=== PATIENT | female | born 1950 | race Caucasian/White ===

== ENCOUNTER 2016-05-23 09:46 | Day surgery (SDC) | payer MEDICARE, OTHER ==
[2016-05-20 08:56] VITALS: BMI 31.6
[~2016-05-23 09:46] MED LIST: FAMOTIDINE 20 MG/2 ML VIAL IV PRN; LACTATED RINGERS 1,000 ML IV SCH; LIDOCAINE 1% 20 ML VIAL (10MG/ML) FOR IV START INTRADERMA PRN; MIDAZOLAM 2 MG/2 ML VIAL IV PRN; Pre Op ABX Message 1 EACH MISC MISCELLANE ONE
[2016-05-23] MEDS ORDERED: LACTATED RINGERS 1,000 ML IV ONE ×2 (10:40→11:24)
[2016-05-23] MEDS ORDERED: MIDAZOLAM 2 MG/2 ML VIAL ONE (10:48)
[2016-05-23] MEDS ORDERED: SUCCINYLCHOLINE CHLORIDE 100 MG/5 ML SYR IV ONE (10:48)
[2016-05-23] MEDS ORDERED: PHENYLEPHRINE-0.9% NACL SYG 1 MG/10 ML SYRINGE ONE (10:48)
[2016-05-23] MEDS ORDERED: LACTATED RINGERS 1,000 ML BAG IV ONE (10:48)
[2016-05-23] MEDS ORDERED: LIDOCAINE 1% INJ 10MG/ML (20 ML MDV) ONE (10:48)
[2016-05-23] MEDS ORDERED: PROPOFOL 10 MG/ML 20 ML VIAL IV ONE (10:48)
[2016-05-23] MEDS ORDERED: fentaNYL (PF) 50 MCG/ML 2 ML AMP ONE (10:48)
[2016-05-23] MEDS ORDERED: BUPIVACAIN-EPI 0.5%-1:200,000 30 ML VIAL SQ ONE (11:06)
--- NOTE | 2016-05-23 11:50 | P.OP ---
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 Margins were close. Therefore wide excision was recommended and informed consent was obtained. Operative Findings: Previous biopsy cavity was found in the right upper quadrant and excised. Description of Procedure: With the patient supine the right breast and chest wall were prepped with Betadine and draped local anesthetic Marcaine 0.5% plain was infiltrated into the skin and subcutaneous tissues at the previous scar. Upper and lower flaps were created. I'll see cavity was palpable was grasped with an Allis clamp and excised completely with about a centimeter margin circumferentially muscle and including the fascia. The wound was irrigated hemostasis was good and the field was dry. Closure was achieved with interrupted 4-0 Vicryl for the subcutaneous tissues and 4-0 Monocryl subcuticular suture and Steri-Strips for the skin. Dressings were applied. All counts were correct.
[2016-05-23 12:01] VITALS: TEMP 97.6
[2016-05-23] MEDS: HYDROmorphone 1 MG/ML 1 ML SYRINGE IVP PRN ×4 (12:02→12:35)
[2016-05-23 12:28] VITALS: RESP 16
[2016-05-23] MEDS ORDERED: HYDROcodone/APAP 5-325MG 1 EACH TAB PO ONE (13:05)
[2016-05-23 13:48] VITALS: BP 98/65; PULSE 75
== END 2016-05-23 14:15 | disposition home or self-care (01) ==
LOC: OR 09:46
PROVIDERS: ATTEND Surgery
DX: D05.11 Intraductal carcinoma in situ of right breast (principal); N60.11 Diffuse cystic mastopathy of right breast; I10 Essential (primary) hypertension; E78.5 Hyperlipidemia, unspecified; M19.90 Unspecified osteoarthritis, unspecified site; F41.9 Anxiety disorder, unspecified; K21.9 Gastro-esophageal reflux disease without esophagitis; Z79.82 Long term (current) use of aspirin; Z79.899 Other long term (current) drug therapy; Z88.0 Allergy status to penicillin
CPT/HCPCS: 19301; 88342; 88307; J2250; J2001; J3010; J1170; J2370; J0330; J2704

== ENCOUNTER 2016-07-25 07:43 | Day surgery (SDC) | payer MEDICARE, OTHER ==
[2016-07-22 11:43] VITALS: BMI 32.3
[~2016-07-25 07:43] MED LIST changes: -FAMOTIDINE 20 MG/2 ML VIAL IV PRN; -LIDOCAINE 1% 20 ML VIAL (10MG/ML) FOR IV START INTRADERMA PRN; -MIDAZOLAM 2 MG/2 ML VIAL IV PRN; -Pre Op ABX Message 1 EACH MISC MISCELLANE ONE
[2016-07-25 09:01] VITALS: TEMP 97.5
[2016-07-25] MEDS ORDERED: LIDOCAINE 1% 20 ML VIAL (10MG/ML) FOR IV START INTRADERMA ONE (09:07)
[2016-07-25] MEDS ORDERED: PROPOFOL 10 MG/ML 20 ML VIAL IV ONE (09:52)
[2016-07-25 10:19] VITALS: RESP 18
--- NOTE | 2016-07-25 10:23 | P.PCN ---
Date of Procedure: 07/25/16 Procedure(s) Performed: Procedure: Esophagogastroduodenoscopy and biopsy. Preoperative diagnosis: Chronic reflux symptoms requiring ongoing therapy. Postoperative diagnosis: 1. Small sliding hiatal hernia with no definite esophagitis or complicated reflux disease. 2. Mild antral gastritis. 3. Multiple biopsies obtained from the duodenum, antrum and esophagus. Preparation sedation: Was provided by anesthesia. Brief clinical history: The patient is a 66-year-old female was had issues with reflux for more than 10 years for which she has been maintained on PPI. Apparently, she would have recurrence of her symptoms within 2-3 days when she stops taking her medications. She has no alarm symptoms such as dysphagia, bleeding or weight loss. No history of anemia. Procedure: With the patient on her left lateral decubitus position and after informed consent and adequate sedation, I passed the Olympus-GIF 160 video upper endoscope through the cricopharyngeus down the esophagus. GE junction was around 38 cm from the incisors and there was a small sliding hiatal hernia. The esophagus did not show any obvious erosions, ulcers, strictures or Nassar 's esophagus. The endoscope was then passed into the stomach which was insufflated with air and inspected in detail including the retroflex view in the cardia. There was minimal mottling and erythema in the antrum but no ulcers or erosions. Pyloric channel, duodenal bulb, post bulbar area and descending duodenum appeared within normal limits. Because of her history, I obtained multiple biopsies from the duodenum in addition to biopsies from the antrum and esophagus then the endoscope was withdrawn. The patient tolerated the procedure well. Plan: The patient was reassured. Will await biopsy results. In the meantime, she will continue her regular follow-up with you and I suggest that she continue to be maintained on the longest intervals and minimal dozing of acid suppressive treatment necessary to keep her symptoms under control. I will be happy to see in the office of her symptoms change.
[2016-07-25 10:34] VITALS: BP 110/65; PULSE 78
== END 2016-07-25 11:20 | disposition home or self-care (01) ==
LOC: ORWHC2ENDO 07:43
DX: K21.9 Gastro-esophageal reflux disease without esophagitis (principal); K44.9 Diaphragmatic hernia without obstruction or gangrene; K31.9 Disease of stomach and duodenum, unspecified; K29.70 Gastritis, unspecified, without bleeding; Z79.811 Long term (current) use of aromatase inhibitors; Z79.1 Long term (current) use of non-steroidal anti-inflammatories (NSAID); Z79.899 Other long term (current) drug therapy; Z88.0 Allergy status to penicillin
CPT/HCPCS: 88305; 88342; 43239; J2704

== ENCOUNTER → 2016-07-29 | Outpatient (CLI) | payer MEDICARE, OTHER ==
--- NOTE | 2016-07-29 09:12 | US ---
EXAMINATION TYPE: US abdomen complete DATE OF EXAM: 07/29/2016 7:29 AM COMPARISON: Previous study dated 01/28/2011. CLINICAL HISTORY: R22.1 Pulsatile Mass. Patient states pulsatile mass at abdominal aorta level; BR CA . EXAM MEASUREMENTS: Liver Length: 13.9 cm Gallbladder Wall: 0.2 cm CBD: 0.3 cm Spleen: 9.8 cm Right Kidney: 9.8 x 6.5 x 4.4 cm Left Kidney: 9.5 x 5.0 x 5.7 cm TECHNOLOGIST IMPRESSION: Pancreas: hyperechoic Liver: wnl Gallbladder: wnl Evidence for sonographic Sánchez's sign: No CBD: wnl Spleen: wnl Right Kidney: wnl Left Kidney: wnl Upper IVC: wnl Abd Aorta: wnl The aorta is normal in caliber. The gallbladder wall measures 1.8 mm. IMPRESSION: NORMAL ABDOMINAL ULTRASOUND.
== END | disposition home or self-care (01) ==
LOC: RADUSWWP 06:47
PROVIDERS: ATTEND Family Medicine
DX: R19.00 Intra-abdominal and pelvic swelling, mass and lump, unspecified site (principal)
CPT/HCPCS: 76700

== ENCOUNTER → 2016-08-02 | Outpatient (CLI) | payer MEDICARE, OTHER | END | disposition home or self-care (01) | LOC: LABWHC1 08:16 | PROVIDERS: ATTEND Family Medicine | DX: Z01.818 Encounter for other preprocedural examination (principal) | CPT/HCPCS: 36415; 93005 ==

== ENCOUNTER → 2017-02-28 | Outpatient (CLI) | payer MEDICARE, OTHER ==
--- NOTE | 2017-02-28 11:36 | WWHP ---
[facility] - HISTORY AND PHYSICAL DATE OF SERVICE: 02/28/2017 CHIEF COMPLAINT: The patient is here for her routine gynecologic exam. HPI: This is a 66-year-old, G2, P2, with an LMP of 1981, who is status post SHERLYN for benign reasons. The patient is without gynecologic complaints. PAST MEDICAL HISTORY: Bilateral breast cancer and she is status post lumpectomy with radiation therapy in 2014 on the left side and is status post right mastectomy on the right side. She has a history of chronic hypertension, gastroesophageal reflux disease, elevated cholesterol, seasonal allergies, and arthritis. MEDICATIONS: 1. Lisinopril with hydrochlorothiazide 20/25 mg 1 daily. 2. Anastrozole 1 mg 1 daily. 3. Simvastatin 40 mg daily. 4. Caltrate 600 with vitamin D3 one daily. 5. Meloxicam 7.5 mg 1 b.i.d. p.r.n. 6. Alprazolam 0.25 mg q.6 hours p.r.n. 7. Timolol malleate ophthalmic drops 0.5% 1 drop daily in the left eye. ALLERGIES: PENICILLIN PAST SURGICAL HISTORY: SHERLYN in 1981, cystocele and possible rectocele repair in 2000, left breast lumpectomy in 2015, right mastectomy in 2016 and tonsillectomy in the past. SOCIAL HISTORY: She denies tobacco and drug use and has 1 to 2 alcohol-containing drinks per month. She has a gentleman friend who she has been with since 2014, but is not sexually active. 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 FAMILY HISTORY: Unchanged from the 2016 H&P. REVIEW OF SYSTEMS: She has lost about 11 pounds over the last year. She denies respiratory, cardiac or GI problems. She denies maltreatment or falling. She denies any significant urinary leakage. PHYSICAL EXAM: Blood pressure 115/69, height 5 feet 6 inches, weight 188 pounds. Temperature 97.9, pulse 71. This is a well-developed, well-nourished, white female, who is alert and oriented x3, in no acute distress. HEENT is within normal limits. NECK: Supple without mass or thyromegaly. CHEST AND LUNGS: Clear to auscultation. HEART: Regular rate and rhythm. The right breast is consistent with right mastectomy and she is status post flap reconstruction. There are no palpable masses. She has no nipple on this side. Left breast is without mass or discharge and there is very slight dimpling at the site of her previous lumpectomy at the 7 o'clock position. There are no palpable masses and the breasts are nontender. Axillary exam is negative for adenopathy. Back negative for CVA tenderness. ABDOMEN: Soft, nontender, without palpable masses. PELVIC EXAM: External genitalia reveals mild atrophy without lesions. Vagina reveals a grade 2 to 3 rectocele which the patient states is asymptomatic. The mucosal tissue is noninflamed. There is no other evidence of prolapse. Bimanual exam is negative for mass or tenderness. Rectovaginal exam confirms a rectocele but is negative for mass or tenderness and is negative for occult blood. EXTREMITIES: Nontender. IMPRESSION: 1. A 66-year-old menopausal female who is status post total abdominal hysterectomy for benign reasons. 2. Grade 2 to 3 rectocele which is stable and asymptomatic. 3. History of bilateral breast cancer with no evidence of recurrence on exam today. PLAN: 1. Pap smears have been discontinued. 2. Self breast examination was discussed. 3. Mammogram will be due in 07/2017 per the patient and this is done through her oncologist. 4. Osteoporosis prevention was discussed. She had normal bone density test on 02/08/2016. 5. She did get a flu shot recently. 6. She will return in one year. MMODL / IJN: [id number] /
== END | disposition home or self-care (01) ==
DX: Z01.419 Encounter for gynecological examination (general) (routine) without abnormal findings (principal)

== ENCOUNTER → 2017-07-13 | Outpatient (CLI) | payer MEDICARE, OTHER ==
--- NOTE | 2017-07-13 09:33 | MM ---
Reason for exam: additional evaluation requested from prior study. Last mammogram was performed 1 year and 3 months ago. History: Patient is postmenopausal, has history of breast cancer at age 65, and has history of high-risk lesion on a previous biopsy at age 64. Mastectomy of the right breast, 2017. Malignant MG pre op needle loc RT of the right breast, May 06, 2016. Lumpectomy of the left breast, May 06, 2016. Malignant MG stereo VAD BX RT of the right breast, April 14, 2016. Malignant MG pre op loc each addl LT of the left breast, May 28, 2015. Malignant MG pre op needle loc LT of the left breast, May 28, 2015. Malignant US biopsy breast VAD LT of the left breast, April 24, 2015. High risk US biopsy breast VAD LT of the left breast, March 25, 2015. Benign cyst aspiration, 1984. Took estrogen for 1 year. Taking antineoplastic beginning at age 65. Physical Findings: Nurse did not find any significant physical abnormalities on exam. MG 3D Diag Mammo W/Cad LT CC, MLO, ML, and XCCM view(s) were taken of the left breast. Prior study comparison: April 11, 2016, bilateral MG 3d diag mammo w/cad ALEXIS. April 24, 2015, left breast MG diagnostic mammo LT wo CAD. The breast tissue is heterogeneously dense. This may lower the sensitivity of mammography. Finding: Architectural distortion in the posterior position of the left breast consistent with known lumpectomy. There is no discrete abnormality. These results were verbally communicated with the patient and result sheet given to the patient on 07/13/17. ASSESSMENT: Benign, BI-RAD 2 RECOMMENDATION: Follow-up diagnostic mammogram of the left breast in 1 year.
== END | disposition home or self-care (01) ==
LOC: RADMAMWWP 08:32
PROVIDERS: ATTEND Internal Medicine Hematology & Oncology
DX: Z08 Encounter for follow-up examination after completed treatment for malignant neoplasm (principal); Z85.3 Personal history of malignant neoplasm of breast
CPT/HCPCS: 77065; G0279

== ENCOUNTER → 2017-10-16 | Outpatient (CLI) | payer MEDICARE, OTHER ==
--- NOTE | 2017-10-17 08:06 | US ---
EXAMINATION TYPE: US thyroid st tissue head/neck DATE OF EXAM: 10/16/2017 COMPARISON: NONE CLINICAL HISTORY: R22.1 Localized swelling mass neck. fullness on right side of neck for a few months GLAND SIZE: Right Lobe: 4.5 x 1.3 x 1.3 cm Overall Parenchyma: heterogenous Left Lobe: 5.1 x 1.7 x 2.2 cm Overall Parenchyma: heterogeneous Isthmus Thickness: 0.3 cm NODULES RIGHT: # of nodules measured on right: 2 1. 1.3 X 0.8 x 1.4 cm hypoechoic mixed nodule at the lower pole with well-defined margins. This no dule is wider than tall and shows intranodular vascularity. 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 0.6 X 0.7 x 0.6 cm cystic nodule at the lower pole with well-defined margins. This nodule is wi edmundo than tall and shows no intranodular vascularity. Prior size: CONTROL SYSTEM COMPUTER SCIENTIST LEFT: # of nodules measured on left: 1 1. 3.2 X 1.8 x 1.8 cm hypoechoic solid nodule at the mid pole with well-defined margins. This nodu le is wider than tall and shows intranodular vascularity. Prior size: CONTROL SYSTEM COMPUTER SCIENTIST ISTHMUS: # of nodules measured in the isthmus: 0 Bilateral neck scanned, no evidence of lymphadenopathy. 2.0cm lymph node with fatty hilum and vascularity noted at area of fullness superior to thyroid. IMPRESSION: Bilateral thyroid nodules consistent with multinodular goiter
== END | disposition home or self-care (01) ==
LOC: RADUSWWP 16:09
PROVIDERS: ATTEND Family Medicine
DX: E04.2 Nontoxic multinodular goiter (principal); Z88.0 Allergy status to penicillin
CPT/HCPCS: 76536

== ENCOUNTER → 2017-11-22 | Outpatient (CLI) | payer MEDICARE, OTHER ==
--- NOTE | 2017-11-23 13:33 | NM ---
EXAMINATION TYPE: NM thyroid image w uptake DATE OF EXAM: 11/23/2017 COMPARISON: Ultrasound neck 10/16/2017, CT neck 11/23/2017 HISTORY: Localized swelling, mass, lump in neck TECHNIQUE: Thyroid iodine uptake is calculated and images performed after the oral administration of 306 uCi I-123 uCi 1-123 Capsule. FINDINGS: There is abnormal distribution of activity throughout the gland, decreased radio pharmaceut ical uptake noted at the lower pole of the left lobe corresponding to patient's nodule. The 4 hour i odine uptake is calculated at 7.4% (normal range 8-14%). The 24-hour iodine uptake is calculated at 1 8.8% (normal range 15-35%). IMPRESSION: Findings suggest cold nodule lower pole of the left lobe of the thyroid gland.
== END ==
LOC: RADNMMAIN 10:30
PROVIDERS: ATTEND Otolaryngology
DX: E04.1 Nontoxic single thyroid nodule (principal)
CPT/HCPCS: 36415; 78014; A9516; 70491; 82565; 84520

== ENCOUNTER → 2017-11-23 | Outpatient (CLI) | payer MEDICARE, OTHER ==
--- NOTE | 2017-11-23 12:26 | CT ---
EXAMINATION TYPE: CT soft tissue neck w con DATE OF EXAM: 11/23/2017 HISTORY: Rt neck mass COMPARISON: NONE CT DLP: 380.6 mGycm. Automated Exposure Control for Dose Reduction was Utilized. TECHNIQUE: CT scan of the neck is performed with IV Contrast, patient injected with 100 mL of Isovue 300, axial images are obtained, coronal and sagittal reformatted images are reviewed. FINDINGS: The palpable meeting marker corresponds to the morphologically normal-appearing right subma ndibular gland and few right submandibular nonenlarged morphologically normal-appearing lymph nodes. On the left there is a superficial cystic 1 cm fluid collection just deep to the skin surface below t he level of the angle of the mandible that may represent a subcutaneous sebaceous cyst. Airway: Within the right vallecula there is a centrally low dense structure measuring 1.2 x 0.9 x 0.7 cm that appears to have a superior margin although this could represent debris. However polyp is pos sible and therefore direct visualization is recommended. The piriform sinuses, fossa of Rosenmuller, and torus tubarius are unremarkable. Parotid/submandibular glands: Symmetric without surrounding inflammatory change. Mild age-related par otid gland atrophy is noted. Submandibular glands are unremarkable Carotid/Vascular Structures: There is a conventional three-vessel branch pattern of the aortic arch. In regards to the common carotid arteries there is no evidence of hemodynamically significant stenosi s. Within the left carotid bulb there is a short segment of focal stenosis of approximately 50% over 8 8 mm in length. Within the remainder of the left internal carotid artery and right internal carotid artery there is no hemodynamically significant stenosis. Mild noncalcific atheromatous plaquing and calcific atheromatous plaquing is seen within the right carotid bulb without hemodynamically signific ant stenosis. Vertebral arteries appear patent. Osseous Structures: Moderate degenerative changes are seen of the lower cervical spine with posterior disc osteophyte complexes at C5-C6 and C6-C7 creating at least mild spinal canal stenosis. Other: Minimal dependent atelectasis is seen at the lung apices. The thyroid gland is diffusely heter ogenous with left thyroid 1.9 cm nodule. Posterior to the right jugular and medial to the sternocleidomastoid there is a level 2 cervical vasyl n probable lymph node measuring 1.3 x 1.0 cm, upper limits of normal. This is asymmetric to the left and seen on series 3 image 59. IMPRESSION: 1. The palpable BB marker corresponds to a normal-appearing right submandibular gland and nonenlarged surrounding lymph nodes. 2. Single right level 2 prominent lymph node, nonspecific for which short-term follow-up is recommend ed in 3 months. 3. Ovoid density within the right vallecula that could represent a polyp, neoplasm or retained debris . Direct visualization is recommended. 4. Moderate degenerative disease of the lower cervical spine resulting in at least mild spinal canal stenosis at C5-C6 and C6-C7. 5. Subcutaneous left mandibular lesion that likely represents a sebaceous cyst.
== END ==
LOC: RADCTMAIN 12:00
PROVIDERS: ATTEND Otolaryngology
DX: R22.1 Localized swelling, mass and lump, neck (principal)
CPT/HCPCS: 70491; Q9967

== ENCOUNTER 2017-12-20 07:59 | Day surgery (SDC) | payer MEDICARE, OTHER ==
[2017-12-20 08:45] VITALS: RESP 18; TEMP 98.7
[2017-12-20] MEDS ORDERED: ALPRAZolam 0.5 MG TAB PO STA (08:48)
--- NOTE | 2017-12-20 09:52 | US ---
EXAMINATION TYPE: US FNA thyroid DATE OF EXAM: 12/20/2017 COMPARISON: NONE HISTORY: Thyroid nodule. Maximal barrier technique was utilized. After informed consent, skin overlying the lesion was locali zed with ultrasound and the overlying skin prepped and draped. Ultrasound was utilized using sterile technique. Lidocaine was used for local anesthesia. Five passes with a 25-gauge needle were made int o the nodule and aspirated specimen was submitted to cytology. Following the procedure hemostasis ac hieved. No immediate complication. The patient discharged in stable condition. IMPRESSION: STATUS POST ULTRASOUND GUIDED FINE NEEDLE ASPIRATION OF LEFT THYROID NODULE, PATHOLOGY IS PENDING. THIS PROCEDURE WAS PERFORMED BY THE UNDERSIGNED.
[2017-12-20 10:25] VITALS: BP 147/76; PULSE 87
== END 2017-12-20 10:15 | disposition home or self-care (01) ==
LOC: RADPROMAIN 07:59
PROVIDERS: ATTEND Otolaryngology
DX: E04.1 Nontoxic single thyroid nodule (principal)
CPT/HCPCS: 10022; 76942; 88173; 88305

== ENCOUNTER → 2017-12-22 | Outpatient (CLI) | payer MEDICARE, OTHER | END | disposition home or self-care (01) | LOC: PTMAIN 11:05 | PROVIDERS: ATTEND Otolaryngology | DX: K21.9 Gastro-esophageal reflux disease without esophagitis (principal); J38.1 Polyp of vocal cord and larynx | CPT/HCPCS: 31579 ==

== ENCOUNTER → 2018-01-16 | Outpatient (CLI) | payer MEDICARE, OTHER ==
--- NOTE | 2018-01-16 16:37 | BD ---
EXAMINATION TYPE: Axial Bone Density DATE OF EXAM: 01/16/2018 COMPARISON: NONE CLINICAL HISTORY: Height: 65 Weight: 197.5 FRAX RISK QUESTIONS: Alcohol (3 or more units per day): no Family History (Parent hip fracture): no Glucocorticoids (More than 3mos): no (Ex: prednisone, prednisolone, methylprednisolone, dexamethasone, and hydrocortisone). History of Fracture in Adulthood: no Secondary Osteoporosis: 1. Type 1 Diabetes: no 2. Hyperthyroidism: no 3. Menopause before 45: no 4. Malnutrition: no 5. Chronic liver disease: no Rheumatoid Arthritis: no Current Tobacco Use: no RISK FACTORS HISTORY OF: Family History of Osteoporosis: no Active: yes Diet low in dairy products/other sources of calcium: yes Postmenopausal woman: hysterectomy age 32/maria antonia- around age 50 Lost more than 2 inches in height since high school: no MEDICATIONS: lisinopril, atorvastatin, anastrazole, coltrate, omeprazole, coq10, zyrtec, breast cance r med, acid reflux med Additional History: breast cancer /2017 EXAM MEASUREMENTS: Bone mineral densitometry was performed using the T1 Visions System. Bone mineral density as measured about the Lumbar spine is: ----- L1-L4(G/cm2): 1.209 T Score Values are as follows: ----- L2: 0.2 ----- L3: 0.6 ----- L4: 0.2 ----- L1-L4: 0.2 Bone mineral density has: decreased -2.7 % since study of: 02.08.2016 Bone mineral density about the R hip (g/cm2): 0.844 Bone mineral density about the L hip (g/cm2): 0.901 T Score values are as follows: -----R Neck: -1.4 -----L Neck: -1.0 -----R Total: -0.8 -----L Total: -0.6 Bone mineral density has: -8.0 % since study of: 02.08.2016 IMPRESSION: Osteopenia (T Score between -2.5 and -1). There is slightly increased risk of fracture and the patient may be considered for treatment. Re-Screen 2-5 years. NOTE: T-SCORE=SD OF THE YOUNG ADULT MEAN.
== END | disposition home or self-care (01) ==
LOC: RADBDWWP 09:30
PROVIDERS: ATTEND Internal Medicine Hematology & Oncology
DX: C50.411 Malignant neoplasm of upper-outer quadrant of right female breast (principal); M85.80 Other specified disorders of bone density and structure, unspecified site; Z79.890 Hormone replacement therapy; N95.1 Menopausal and female climacteric states
CPT/HCPCS: 77080

== ENCOUNTER → 2018-02-20 | Outpatient (CLI) | payer MEDICARE, OTHER | LOC: CPPFTMAIN 10:34 | PROVIDERS: ATTEND Family Medicine | DX: R05 Cough (principal) | CPT/HCPCS: 94060; 94726; 94729; 94760 ==

== ENCOUNTER → 2018-03-06 | Outpatient (CLI) | payer MEDICARE, OTHER ==
[2018-03-06 10:19] VITALS: BP 127/77; PULSE 89; TEMP 98; BMI 33.3
--- NOTE | 2018-03-06 11:15 | P.HPOB ---
History of Present Illness H&P Date: 03/06/18 Chief Complaint: The patient is here for her routine gynecologic exam. This is a 67-year-old with an LMP of 1981. She is status post [facility] for benign reasons. She has a known rectocele and denies any symptoms from this. Review of Systems She has gained about 12 pounds over the last year. The prior year she had lost 11 pounds. She denies respiratory, cardiac and G.I. problems. She denies maltreatment or problems with falling. : she denies any significant problems with urinary leakage. Past Medical History Past Medical History: Cancer (Bilateral breast cancer, stage 0 Left 2014, stage 0 right 2017.), GERD/Reflux, Hyperlipidemia, Hypertension, Osteoarthritis (OA) Additional Past Medical History / Comment(s): alexis BREAST CA, HX OF ALEXIS DETACHED RETINA, LEFT EYE HAS "FLAG" FOR GLAUCOMA. Arthritis. 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 She has a known rectocele. History of Any Multi-Drug Resistant Organisms: None Reported Past Surgical History: Bladder Surgery, Breast Surgery (Left lumpectomy 2014, right mastectomy with reconstruction 2016.), Hysterectomy (SHERLYN 1981), Orthopedic Surgery, Tonsillectomy Additional Past Surgical History / Comment(s): MULT BREAST BX , LEFT elbow surg , cystocele and rectocele repair, alexis breast lumpectomy (rt x 2), right breast biopsy, colonoscopy 2017 and 2012. Past Anesthesia/Blood Transfusion Reactions: Postoperative Nausea & Vomiting ( PONV) Past Psychological History: Anxiety Smoking Status: Never smoker Past Alcohol Use History: Rare (0-1 per month) Past Drug Use History: None Reported Additional History: She is a . She does have a gentleman friend since 2014. She is not sexually active. She is retired. - Past Family History Son(s) Family Medical History: Cancer (Bladder) Brother(s) Family Medical History: Cancer Additional Family Medical History / Comment(s): LUNG Mother Family Medical History: Diabetes Mellitus Father Family Medical History: CVA/TIA Medications and Allergies Home Medications Medication Instructions Recorded Confirmed Type Anastrozole [Arimidex] 1 mg PO DAILY 04/28/16 03/06/18 History Lisinopril-Hctz 20-25 mg 1 tab PO DAILY 04/28/16 03/06/18 History [Zestoretic 20-25] Calcium Carbonate/Vitamin D3 1 each PO DAILY 12/18/17 03/06/18 History [Caltrate 600 Plus D3 Tablet] Cetirizine HCl [Zyrtec] 10 mg PO DAILY 12/18/17 03/06/18 History Ubidecarenone [Co Q-10] 100 mg PO DAILY 12/18/17 03/06/18 History Pantoprazole [Protonix] mg PO DAILY 03/06/18 History Allergies Allergy/AdvReac Type Severity Reaction Status Date / Time Penicillins Allergy Rash/Hives Verified 03/06/18 10:20 Exam Vital Signs Temp Pulse BP 03/06/18 10:14 98.0 F 89 127/77 Intake and Output 03/05/18 03/06/18 03/06/18 22:59 06:59 14:59 Other: Weight 90.718 kg Height 5'5", weight 200 pounds, BMI 33.3. This is a well-developed well-nourished heavyset white female who is alert and oriented times 3 in no acute distress. HEENT: Within normal limits. NECK: Supple without mass or thyromegaly. CHEST AND LUNGS: Clear to auscultation. HEART: Regular rate and rhythm. BREASTS: Are without mass or discharge. AXILLARY EXAM: Negative for adenopathy. BACK: Negative for CVA tenderness. ABDOMEN: Soft, nontender, without palpable masses. The patient states she has noticed a small bulge at the right aspect of her low transverse abdominal incision when she has been on her feet for a long time. It can be slightly achy at those times. She denies any symptoms currently. PELVIC EXAM: External genitalia appears normal with mild atrophy. Vagina reveals a posterior prolapsed consistent with a grade 2 to 3 rectocele. There is no erosion of the vaginal mucosa. This is stable from her previous exam. Bimanual examination is negative for mass or tenderness. RECTAL EXAM: Rectovaginal exam is negative for mass or tenderness and is negative for occult blood but does confirm a grade 2 to 3 rectocele which also may include a small enterocele. EXTREMITIES: Nontender. IMPRESSION: 1. 67-year-old menopausal female status post SHERLYN for benign reasons with a stable grade 2 to 3 rectocele. 2. History of bilateral breast cancer stages 0 which were diagnosed and treated on 2 separate occasions. She is status post left lumpectomy and radiation, and right mastectomy with reconstruction. 3. Probable small right lower quadrant abdominal hernia at her incision site based on her history without any significant physical findings at this time. 4. History of osteopenia. PLAN: 1. Pap smears have been discontinued. 2. Self breast awareness was discussed with the patient. 3. Mammograms are ordered by Dr. Mora, her oncologist. Her last mammogram was on 07/13/2017 and was benign. She has been having them yearly. 4. She did receive her flu shot recently. 5. Osteoporosis prevention was discussed. She will continue to do bone density testing through Dr. Mora. 6. Conservative management of her rectocele and possible right lower quadrant abdominal wall hernia. She will do negative Valsalva exercises if she is noticing a bulge. She will call if she is having symptoms from her rectocele and she will contact Dr. Hutson, her surgeon, if she is having abdominal hernia symptoms. 7. She will return in one year.
== END | disposition home or self-care (01) ==
LOC: WWCWWP 09:40
PROVIDERS: ATTEND Obstetrics & Gynecology
DX: Z53.9 Procedure and treatment not carried out, unspecified reason (principal)

== ENCOUNTER → 2018-07-16 | Outpatient (CLI) | payer MEDICARE, OTHER ==
--- NOTE | 2018-07-16 11:55 | MM ---
Reason for exam: additional evaluation requested from prior study. Last mammogram was performed 1 year ago. History: Patient is postmenopausal, has history of breast cancer at age 65, and has history of high-risk lesion on a previous biopsy at age 64. Mastectomy of the right breast, 2017. Malignant MG pre op needle loc RT of the right breast, May 06, 2016. Lumpectomy of the left breast, May 06, 2016. Malignant MG stereo VAD BX RT of the right breast, April 14, 2016. Malignant MG pre op loc each addl LT of the left breast, May 28, 2015. Malignant MG pre op needle loc LT of the left breast, May 28, 2015. Malignant US biopsy breast VAD LT of the left breast, April 24, 2015. High risk US biopsy breast VAD LT of the left breast, March 25, 2015. Benign cyst aspiration, 1984. Took estrogen for 1 year. Taking antineoplastic for 4 years. Physical Findings: Nurse did not find any significant physical abnormalities on exam. MG 3D Diag Mammo W/Cad LT CC and MLO view(s) were taken of the left breast. Prior study comparison: July 13, 2017, left breast MG 3d diag mammo w/cad LT. April 11, 2016, bilateral MG 3d diag mammo w/cad ALEXIS. The breast tissue is heterogeneously dense. This may lower the sensitivity of mammography. Benign calcifications in the left breast. Medial asymmetry resolves on spot compression view. Post surgical change on the left. These results were verbally communicated with the patient and result sheet given to the patient on 07/16/18. ASSESSMENT: Benign, BI-RAD 2 RECOMMENDATION: Follow-up diagnostic mammogram of the left breast in 1 year.
== END | disposition home or self-care (01) ==
LOC: RADMAMWWP 10:57
PROVIDERS: ATTEND Internal Medicine Hematology & Oncology
DX: Z08 Encounter for follow-up examination after completed treatment for malignant neoplasm (principal); Z85.3 Personal history of malignant neoplasm of breast; Z90.11 Acquired absence of right breast and nipple
CPT/HCPCS: 77065; G0279; 77061

== ENCOUNTER → 2019-05-22 | Outpatient (CLI) | payer MEDICARE, OTHER ==
[2019-05-22 10:04] VITALS: BP 145/74; PULSE 81; RESP 18; TEMP 98.1
--- NOTE | 2019-05-22 10:59 | P.HPOB ---
History of Present Illness H&P Date: 05/22/19 Chief Complaint: The patient is here for her routine gynecologic exam. This is a 69-year-old with an LMP of 1981. The patient is status post SHERLYN for benign reasons. The patient has been experiencing occasional bladder frequency that seems to improve after she moves her bowels. She also can feel pressure in the vagina and sometimes this makes it more difficult to move her bowels. She does have a history of a grade 2-3 rectocele. She denies any prolapse outside of the vaginal opening. She is otherwise without complaints. Review of Systems She is gained about 6 pounds over the last year. She denies respiratory, cardiac and G.I. problems. She denies maltreatment or problems with falling. : She has occasional urinary leakage and sometimes feels like the rectocele is pushing up against her bladder. Past Medical History Past Medical History: Cancer, GERD/Reflux, Hyperlipidemia, Hypertension, Osteoarthritis (OA) Additional Past Medical History / Comment(s): alexis BREAST CA, HX OF ALEXIS DETACHED RETINA, LEFT EYE HAS "FLAG" FOR GLAUCOMA. Arthritis. 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 She has a known rectocele. History of Any Multi-Drug Resistant Organisms: None Reported Past Surgical History: Bladder Surgery, Breast Surgery, Hysterectomy, Orthopedic Surgery, Tonsillectomy Additional Past Surgical History / Comment(s): MULT BREAST BX , LEFT elbow surg,SHERLYN in 1981, cystocele and rectocele repair in 2000, alexis breast lumpectomy (rt x 2), right mastectomy with flap [id number], colonoscopy 2018. Past Anesthesia/Blood Transfusion Reactions: Postoperative Nausea & Vomiting (PONV) Past Psychological History: Anxiety Smoking Status: Never smoker Past Alcohol Use History: Rare (2/Year) Past Drug Use History: None Reported Additional History: She is a . She does have a gentleman friend since 2014 and is not sexually active. She does not live with him. She is retired. - Past Family History Son(s) Family Medical History: Cancer Additional Family Medical History / Comment(s): BLADDER cancer Mother Family Medical History: Diabetes Mellitus Father Family Medical History: CVA/TIA Brother(s) Family Medical History: Cancer Additional Family Medical History / Comment(s): LUNG cancer Medications and Allergies Home Medications Medication Instructions Recorded Confirmed Type Anastrozole [Arimidex] 1 mg PO DAILY 04/28/16 05/22/19 History Lisinopril-Hctz 20-25 mg 1 tab PO DAILY 04/28/16 05/22/19 History [Zestoretic 20-25] Calcium Carbonate/Vitamin D3 1 each PO DAILY 12/18/17 05/22/19 History [Caltrate 600 Plus D3 Tablet] Cetirizine HCl [Zyrtec] 10 mg PO DAILY 12/18/17 05/22/19 History Ubidecarenone [Co Q-10] 100 mg PO DAILY 12/18/17 05/22/19 History Atorvastatin [Lipitor] 40 mg PO DAILY 05/22/19 05/22/19 History Omeprazole 20 mg PO DAILY 05/22/19 05/22/19 History Allergies Allergy/AdvReac Type Severity Reaction Status Date / Time Penicillins Allergy Rash/Hives Verified 05/22/19 10:05 Exam Vital Signs Temp Pulse Resp BP Pulse Ox 05/22/19 09:58 98.1 F 81 18 145/74 94 L Intake and Output 05/21/19 05/22/19 05/22/19 22:59 06:59 14:59 Other: Weight 93.44 kg Height 5 feet 5 inches, weight 206 pounds, BMI 34.3. This is a well-developed well-nourished white female who is alert and oriented times 3 in no acute distress. HEENT: Within normal limits. NECK: Supple without mass or thyromegaly. CHEST AND LUNGS: Clear to auscultation. HEART: Regular rate and rhythm. BREASTS: Are without mass or discharge. Right breast is consistent with mastectomy with flap reconstruction. There is no nipple or areola on the right side. AXILLARY EXAM: Negative for adenopathy. BACK: Negative for CVA tenderness. ABDOMEN: Soft, nontender, without palpable masses. PELVIC EXAM: External genitalia appears normal with mild to moderate atrophy. Vagina appears normal with mild to moderate atrophy. There is a grade 2-3 rectocele noted at rest. The vaginal apex is well supported. There is no significant cystocele. Bimanual examination is negative for mass or tenderness. RECTAL EXAM: Rectovaginal exam is negative for mass or tenderness and is negative for occult blood. Rectal exam does confirm a rectocele. With Valsalva there does seem to be a slight bulge above the rectocele consistent with a grade 2 enterocele. EXTREMITIES: Nontender. IMPRESSION: 1. 69-year-old menopausal female status post SHERLYN for benign reasons with grade 2-3 rectocele and grade 2 enterocele. This is mildly symptomatic. 2. History of osteopenia 3. History of bilateral breast cancer status post right mastectomy and left lumpectomy. There is no evidence of recurrence on exam today. PLAN: 1. Pap smears have been discontinued. 2. Self breast awareness was discussed with the patient. 3. Left mammogram was done on 07/16/2018 and was benign. She will have another one done in July of this year. She has an order slip from her oncologist. 4. Osteoporosis prevention was discussed. I have stressed the importance of adequate calcium, vitamin D and regular exercise. Recommended amounts of calcium and vitamin D were also discussed. She will repeat bone density testing in 1-2 years. 5. We had a long discussion regarding her vaginal prolapse. We have decided to proceed with conservative measures at this time. She will do negative Valsalva exercises on a regular basis and this was discussed with the patient. The ACOG handout on pelvic support problems was given to the patient. She will call if she is having increasing symptoms or problems and we can consider surgical options if this is the case. 6. She did receive her flu shot in the fall. 7. The patient was advised to return in 1-2 years for her well woman examination and as needed.
== END | disposition home or self-care (01) ==
LOC: WWCWWP 09:46
PROVIDERS: ATTEND Obstetrics & Gynecology
DX: Z53.9 Procedure and treatment not carried out, unspecified reason (principal)

== ENCOUNTER → 2019-07-18 | Outpatient (CLI) | payer MEDICARE, OTHER ==
--- NOTE | 2019-07-19 09:02 | MM ---
Reason for exam: additional evaluation requested from prior study. Last mammogram was performed 1 year ago. History: Patient is postmenopausal, has history of breast cancer at age 65, and has history of high-risk lesion on a previous biopsy at age 64. Mastectomy of the right breast, 2017. Malignant MG pre op needle loc RT of the right breast, May 06, 2016. Lumpectomy of the left breast, May 06, 2016. Malignant MG stereo VAD BX RT of the right breast, April 14, 2016. Malignant MG pre op loc each addl LT of the left breast, May 28, 2015. Malignant MG pre op needle loc LT of the left breast, May 28, 2015. Malignant US biopsy breast VAD LT of the left breast, April 24, 2015. High risk US biopsy breast VAD LT of the left breast, March 25, 2015. Benign cyst aspiration, 1984. Took estrogen for 1 year. Taking antineoplastic for 4 years. Physical Findings: Nurse did not find any significant physical abnormalities on exam. MG 3D Diag Mammo W/Cad LT CC and MLO view(s) were taken of the left breast. Prior study comparison: July 16, 2018, left breast MG 3d diag mammo w/cad LT. July 13, 2017, left breast MG 3d diag mammo w/cad LT. The breast tissue is heterogeneously dense. This may lower the sensitivity of mammography. Benign appearing calcifications in the left breast. No suspicious abnormality. Left post therapy change and chronic nipple retraction. No significant new findings when compared with previous films. These results were verbally communicated with the patient and result sheet given to the patient on 07/18/19. ASSESSMENT: Benign, BI-RAD 2 RECOMMENDATION: Follow-up diagnostic mammogram of the left breast in 1 year.
== END | disposition home or self-care (01) ==
LOC: RADMAMWWP 14:43
PROVIDERS: ATTEND Internal Medicine Hematology & Oncology
DX: Z08 Encounter for follow-up examination after completed treatment for malignant neoplasm (principal); Z85.3 Personal history of malignant neoplasm of breast; Z90.11 Acquired absence of right breast and nipple
CPT/HCPCS: 77065; G0279; 77061

== ENCOUNTER → 2019-08-15 | Outpatient (CLI) | payer MEDICARE, OTHER ==
--- NOTE | 2019-08-15 08:21 | XR ---
EXAMINATION TYPE: XR lumbosacral spine min 4V DATE OF EXAM: 08/15/2019 COMPARISON: NONE HISTORY: 69-year-old female M54.16 TECHNIQUE: 5 views FINDINGS: Hypertrophic facet arthropathy mid to lower lumbar spine. 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 Some degenerative change at the assimilation joint. Accentuated lumbar lordosi s but with preserved alignment. Mild multilevel degenerative disc disease, moderate at L5-S1. Baastru p's disease lower lumbar spine. Moderate degenerative disc disease lower thoracic spine and thoracolu mbar junction. Vertebral body heights are preserved. IMPRESSION: 1. Hypertrophic facet arthropathy mid to lower lumbar spine with accentuated lumbar lordosis and Baas trup's disease lower lumbar spine. 2. 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 3. Mild to moderate degenerative disc disease throughout. 4. No vertebral compression collapse.
== END | disposition home or self-care (01) ==
LOC: RADXRMAIN 07:58
PROVIDERS: ATTEND Family Medicine
DX: M47.26 Other spondylosis with radiculopathy, lumbar region (principal); M51.37 Other intervertebral disc degeneration, lumbosacral region; M47.27 Other spondylosis with radiculopathy, lumbosacral region
CPT/HCPCS: 72110

== ENCOUNTER → 2020-07-20 | Outpatient (CLI) | payer MEDICARE, OTHER ==
--- NOTE | 2020-07-20 10:36 | MM ---
Reason for exam: additional evaluation requested from prior study. Last mammogram was performed 1 year ago. History: Patient is postmenopausal, has history of breast cancer at age 65, and has history of high-risk lesion on a previous biopsy at age 64. Mastectomy of the right breast, 2017. Malignant MG pre op needle loc RT of the right breast, May 06, 2016. Lumpectomy of the left breast, May 06, 2016. Malignant MG stereo VAD BX RT of the right breast, April 14, 2016. Malignant MG pre op loc each addl LT of the left breast, May 28, 2015. Malignant MG pre op needle loc LT of the left breast, May 28, 2015. Malignant US biopsy breast VAD LT of the left breast, April 24, 2015. High risk US biopsy breast VAD LT of the left breast, March 25, 2015. Benign cyst aspiration, 1984. Took estrogen for 1 year. Taking antineoplastic for 4 years. Physical Findings: Nurse did not find any significant physical abnormalities on exam. MG 3D Diag Mammo W/Cad LT CC and MLO view(s) were taken of the left breast. Prior study comparison: July 18, 2019, left breast MG 3d diag mammo w/cad LT. July 16, 2018, left breast MG 3d diag mammo w/cad LT. The breast tissue is heterogeneously dense. This may lower the sensitivity of mammography. Stable punctate calcifications. Post surgical and post therapy change left breast. No significant new findings when compared with previous films. These results were verbally communicated with the patient and result sheet given to the patient on 07/20/20. ASSESSMENT: Benign, BI-RAD 2 RECOMMENDATION: Follow-up diagnostic mammogram of the left breast in 1 year.
--- NOTE | 2020-07-20 17:05 | BD ---
EXAMINATION TYPE: Axial Bone Density DATE OF EXAM: 07/20/2020 COMPARISON: 01.16.2018 CLINICAL HISTORY: 70 YR OLD FEMALE......ICD-10 CODE: N95.1 POST MENOPAUSE Height: 64.2 Weight: 197 FRAX RISK QUESTIONS: NOTHING TO NOTE HERE RISK FACTORS HISTORY OF: Diet low in dairy products/other sources of calcium: YES Postmenopausal woman: YES, AT ABOUT 50 Take estrogen and/or progesterone medications: YES, IN THE PAST FOR ABOUT 1 YR Hyperparathyroidism: NO Adrenal Insufficiency: NO MEDICATIONS: Additional Medications: BP MEDS, HX OF RADIATION, REFLUX MEDS, STATIN FOR CHOLESTEROL, CALCIUM AND T D, ZINC AND C, ANASTROZOLE Additional History: HX OF BILAT BREAST CANCER, LT BREAST LUMPECTOMY, HORMONE RAHUL FOR 5 YRS, EXAM MEASUREMENTS: Bone mineral densitometry was performed using the [employer] System. Bone mineral density as measured about the Lumbar spine is: ----- L1-L4(G/cm2): 1.250 T Score Values are as follows: ----- L1: 0.2 ----- L2: 0.7 ----- L3: 0.7 ----- L4: 0.5 ----- L1-L4: 0.6 Bone mineral density has: Increased 3.3% SINCE THE STUDY OF 01.16.2018 Bone mineral density about the R hip (g/cm2): 0.943 Bone mineral density about the L hip (g/cm2): 0.938 T Score values are as follows: -----R Neck: -1.0 -----L Neck: -1.0 -----R Total: -0.5 -----L Total: -0.6 Bone mineral density has: Increased 2.3% SINCE THE STUDY OF 01.16.2018 FRAX%s: THERE IS A 8.4% CHANCE FOR A MAJOR OSTEOPOROTIC FX AND A 0.9% FOR HIP......PROBABILITY FOR FX IN 10 YRS TIME IMPRESSION: Normal (Values between +1 and -1 indicate normal bone mass). However, note that measurements border on osteopenia at both hips. Consider repeating this study in 5 years or sooner if there is some new c linical indication. NOTE: T-SCORE=SD OF THE YOUNG ADULT MEAN.
== END | disposition home or self-care (01) ==
LOC: RADMAMWWP 07:57
PROVIDERS: ATTEND Internal Medicine Hematology & Oncology
DX: Z08 Encounter for follow-up examination after completed treatment for malignant neoplasm (principal); N95.1 Menopausal and female climacteric states; Z85.3 Personal history of malignant neoplasm of breast; Z79.890 Hormone replacement therapy
CPT/HCPCS: 77080; 77065; G0279; 77061

== ENCOUNTER → 2020-08-24 | Outpatient (CLI) | payer MEDICARE, OTHER ==
--- NOTE | 2020-08-24 16:50 | ECHOF ---
Referral Reason:I34.0 nonrheumatic mitral insufficiency MEASUREMENTS -------- HEIGHT: 162.6 cm WEIGHT: 92.1 kg BP: IVSd: 1.0 cm (0.6 - 1.1) LVIDd: 4.3 cm (3.9 - 5.3) LVPWd: 1.2 cm (0.6 - 1.1) EDV(Teich): 82 ml IVSs: 1.2 cm LVIDs: 3.7 cm LVPWs: 1.3 cm %IVS Thck: 26 % ESV(Teich): 57 ml EF(Teich): 30 % %FS: 14 % SV(Teich): 25 ml RVIDd: 2.6 cm (< 3.3) LALs A4C: 5.4 cm LAAs A4C: 18.3 cm LAESV A-L A4C: 53 ml LAESV MOD A4C: 52 ml Ao Diam: 2.6 cm (2.0 - 3.7) AV Cusp: 1.9 cm (1.5 - 2.6) EPSS: 0.3 cm MV E Alex: 0.41 m/s MV DecT: 303 ms MV Dec Charles Mix: 1.4 m/s MV A Alex: 0.78 m/s MV E/A Ratio: 0.52 MV PHT: 88 ms TR Vmax: 2.19 m/s TR maxP.18 mmHg RAP: 5.00 mmHg RVSP: 24.18 mmHg MV EF SLOPE: 77.58 mm/s (70 - 150) MV EXCURSION: 17.25 mm (> 18.000) FINDINGS -------- Sinus rhythm. This was a technically good study. LV size, wall thickness and systolic function are normal, with an EF greater than 55%. The left mary tricular size is normal. The right ventricle is normal in size. The left atrial size is normal. The right atrial size is normal. There is mild aortic regurgitation. Mild mitral regurgitation is present. Mild tricuspid regurgitation present. Right ventricular systolic pressure is normal at < 35 mmHg. There is no pulmonic regurgitation present. The aortic root size is normal. There is no pericardial effusion. CONCLUSIONS -------- 1. LV size, wall thickness and systolic function are normal, with an EF greater than 55%. 2. The left ventricular size is normal. 3. The right ventricle is normal in size. 4. The left atrial size is normal. 5. The right atrial size is normal. 6. There is mild aortic regurgitation. 7. Mild mitral regurgitation is present. 8. Mild tricuspid regurgitation present. 9. The aortic root size is normal. 10. There is no pericardial effusion. ORNAMENTAL BRICK INSTALLER: Linnea Murray RDCS
== END | disposition home or self-care (01) ==
LOC: RADECHMAIN 11:26
PROVIDERS: ATTEND Internal Medicine
DX: I08.3 Combined rheumatic disorders of mitral, aortic and tricuspid valves (principal)
CPT/HCPCS: 93306

== ENCOUNTER → 2020-09-21 | Outpatient (CLI) | payer MEDICARE, OTHER ==
--- NOTE | 2020-09-23 08:47 | P.ARTDOP ---
Arterial Doppler LOWER EXTREMITY ARTERIAL DOPPLER: DATE OF SERVICE: 09/21/2020 Reason for study: Left leg pain. Doppler waveforms: Multiphasic bilaterally throughout. Pulse volume recording: []. Pressure gradients: None. Ankle-brachial indices: Greater than 1 bilaterally. Toe brachial indices: 0.64 on the right, 0.66 on the left Impression: Normal study.
== END | disposition home or self-care (01) ==
LOC: RADUSWWP 13:10
PROVIDERS: ATTEND Internal Medicine
DX: M79.605 Pain in left leg (principal)
CPT/HCPCS: 93922

== ENCOUNTER → 2021-07-21 | Outpatient (CLI) | payer MEDICARE, OTHER ==
--- NOTE | 2021-07-21 15:03 | MM ---
Reason for exam: additional evaluation requested from prior study. Last mammogram was performed 1 year ago. History: Patient is postmenopausal, has history of breast cancer at age 65, and has history of high-risk lesion on a previous biopsy at age 64. Mastectomy of the right breast, 2017. Malignant MG pre op needle loc RT of the right breast, May 06, 2016. Lumpectomy of the left breast, May 06, 2016. Malignant MG stereo VAD BX RT of the right breast, April 14, 2016. Malignant MG pre op loc each addl LT of the left breast, May 28, 2015. Malignant MG pre op needle loc LT of the left breast, May 28, 2015. Malignant US biopsy breast VAD LT of the left breast, April 24, 2015. High risk US biopsy breast VAD LT of the left breast, March 25, 2015. Benign cyst aspiration, 1984. Took estrogen for 1 year. Taking antineoplastic for 4 years. Physical Findings: A clinical breast exam by your physician is recommended on an annual basis and results should be correlated with mammographic findings. MG 3D Diag Mammo W/Cad LT CC and MLO view(s) were taken of the left breast. Prior study comparison: July 20, 2020, left breast MG 3d diag mammo w/cad LT. July 18, 2019, left breast MG 3d diag mammo w/cad LT. The breast tissue is heterogeneously dense. This may lower the sensitivity of mammography. Post operative changes in the left breast. No significant new findings when compared with previous films. These results were verbally communicated with the patient and result sheet given to the patient on 07/21/21. ASSESSMENT: Benign, BI-RAD 2 RECOMMENDATION: Follow-up diagnostic mammogram of the left breast in 6 months.
== END | disposition home or self-care (01) ==
LOC: RADMAMWWP 09:34
PROVIDERS: ATTEND Internal Medicine Hematology & Oncology
DX: Z85.3 Personal history of malignant neoplasm of breast (principal)
CPT/HCPCS: 77065; G0279; 77061

== ENCOUNTER → 2022-06-14 | Outpatient (CLI) | payer MEDICARE, OTHER ==
[2022-06-14 10:43] VITALS: BP 123/77; PULSE 65; RESP 16; TEMP 98.3
--- NOTE | 2022-06-14 11:43 | P.HPOB ---
History of Present Illness H&P Date: 06/14/22 Chief Complaint: The patient is here for her routine gynecologic exam. This is a 72-year-old with an LMP of 1981. She is status post SHERLYN for benign reasons. She has a known grade 2-3 rectocele and grade 2 enterocele. This is minimally symptomatic and notices when her stools get hard, it can be more difficult to have a bowel movement. She denies any prolapse out of the vaginal opening. Review of Systems The patient has lost 15 pounds over the last 2 years. She denies respiratory, cardiac, or G.I. problems. Past Medical History Past Medical History: Cancer, GERD/Reflux, Hyperlipidemia, Hypertension, Osteoarthritis (OA) Additional Past Medical History / Comment(s): BL BREAST CA(L 2014 s/p lumpectomy +radiatioin, R 2017 s/p L mastsectomy+reconstruction), HX OF ALEXIS DETACHED RETINA, LEFT EYE HAS "FLAG" FOR GLAUCOMA. 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 She has a known rectocele and enterocele. History of Any Multi-Drug Resistant Organisms: None Reported Past Surgical History: Bladder Surgery, Breast Surgery, Hysterectomy, Orthopedic Surgery, Tonsillectomy Additional Past Surgical History / Comment(s): MULT BREAST BX , LEFT elbow surg,SHERLYN in 1981, cystocele and rectocele repair in 2000, alexis breast lumpectomy (rt x 2), right mastectomy with flap [id number], colonoscopy 2018. Past Anesthesia/Blood Transfusion Reactions: Postoperative Nausea & Vomiting (PONV) Past Psychological History: Anxiety Smoking Status: Never smoker Past Alcohol Use History: Rare (3 per year) Past Drug Use History: None Reported Additional History: She is a . She has a gentleman friend since 2014 and they do not live together and they are not sexually active. She is retired. - Past Family History Son(s) Family Medical History: Cancer Additional Family Medical History / Comment(s): BLADDER cancer Mother Family Medical History: Diabetes Mellitus Father Family Medical History: CVA/TIA Brother(s) Family Medical History: Cancer Additional Family Medical History / Comment(s): LUNG cancer Medications and Allergies Home Medications Medication Instructions Recorded Confirmed Type Lisinopril-Hctz 20-25 mg 1 tab PO DAILY 04/28/16 06/14/22 History [Zestoretic 20-25] Calcium Carbonate/Vitamin D3 1 each PO DAILY 12/18/17 06/14/22 History [Caltrate 600 Plus D3 Tablet] Atorvastatin [Lipitor] 40 mg PO DAILY 05/22/19 06/14/22 History Potassium Chloride ER [K-Dur 10] 10 meq PO DAILY 06/14/22 06/14/22 History Timolol 0.5% Ophth Soln [Timoptic 1 drop BOTH EYES DAILY 06/14/22 06/14/22 History 0.5% Ophth Soln] Allergies Allergy/AdvReac Type Severity Reaction Status Date / Time Penicillins Allergy Rash/Hives Verified 06/14/22 10:36 Exam Vital Signs Temp Pulse Resp BP Pulse Ox 06/14/22 10:40 98.3 F 65 16 123/77 97 Intake and Output 06/13/22 06/14/22 06/14/22 22:59 06:59 14:59 Other: Weight 86.636 kg Height 5 feet 5 inches, weight 191 pounds, BMI 31.8. This is a well-developed well-nourished white female who is alert and oriented times 3 in no acute distress. HEENT: Within normal limits. NECK: Supple without mass or thyromegaly. CHEST AND LUNGS: Clear to auscultation. HEART: Regular rate and rhythm. BREASTS: Are without mass or discharge. Right breast is consistent with previous mastectomy with reconstruction. The left breast is consistent with previous lumpectomy in the inferior medial aspect of the breast. AXILLARY EXAM: Negative for adenopathy. BACK: Negative for CVA tenderness. ABDOMEN: Soft, nontender, without palpable masses. PELVIC EXAM: External genitalia appears normal with mild atrophy. Vagina appears normal with normal mild atrophy and a well supported vaginal cuff. There is a stable grade 2 enterocele and grade 2-3 rectocele. There is no significant cystocele. Bimanual examination is negative for mass or tenderness. RECTAL EXAM: Rectovaginal exam is negative for mass or tenderness and is negative for occult blood. Rectal exam does confirm a rectocele as above. EXTREMITIES: Nontender. IMPRESSION: 1. 72-year-old menopausal female status post SHERLYN for benign reasons, with stable grade 2-3 rectocele and grade 2 enterocele. This is minimally symptomatic. 2. History of bilateral breast cancer status post left lumpectomy and radiation therapy and status post right mastectomy with reconstruction. No evidence of recurrence at this time. 3. History of mild osteopenia. PLAN: 1. Pap smears have been discontinued. 2. Self breast awareness was discussed with the patient. We have also discussed symptoms associated with inflammatory breast cancer. 3. Diagnostic left mammogram will be due in July 2022. She does have an order slip for this. 4. She believes that her oncologist we'll not need to be seeing her in the future. She will confirm this with her oncologist. She will continue breast exams with me on a yearly basis. She also can do her mammograms at the time of her annual well woman examination, if she chooses to do this. 5. Osteoporosis prevention was discussed. I have stressed the importance of adequate calcium, vitamin D and regular exercise. Recommended amounts of calcium and vitamin D were also discussed. Her last bone density test was done on 07/20/2020. We'll plan on repeating this next year at her well woman examination. 6. She states Dr. Bhat, her PCP, is planning to schedule a colonoscopy in the upcoming year. 7. She was advised to return in one year for her annual well woman exam.
== END ==
LOC: WWCWWP 10:18
PROVIDERS: ATTEND Obstetrics & Gynecology
DX: Z98.890 Other specified postprocedural states (principal); Z90.710 Acquired absence of both cervix and uterus; Z90.11 Acquired absence of right breast and nipple; Z92.3 Personal history of irradiation; Z87.39 Personal history of other diseases of the musculoskeletal system and connective tissue; K21.9 Gastro-esophageal reflux disease without esophagitis; E78.5 Hyperlipidemia, unspecified; M19.90 Unspecified osteoarthritis, unspecified site; I10 Essential (primary) hypertension; Z79.899 Other long term (current) drug therapy; Z88.0 Allergy status to penicillin

== ENCOUNTER 2022-11-09 08:04 | Day surgery (SDC) | payer MEDICARE, OTHER ==
[2022-11-09] MEDS ORDERED: LIDOCAINE 1% (10MG/ML) FOR IV START INTRADERMA PRN (08:17)
[2022-11-09] MEDS ORDERED: LACTATED RINGERS 1,000 ML IV SCH (08:17)
[2022-11-09 08:25] VITALS: RESP 16; TEMP 98.6
[2022-11-09] MEDS ORDERED: PROPOFOL 10 MG/ML 20 ML VIAL IV ONE (09:21)
[2022-11-09] MEDS ORDERED: GLYCOPYRROLATE 0.2 MG/ML 2 ML VIAL ONE (09:21)
--- NOTE | 2022-11-09 09:36 | P.PCN ---
Date of Procedure: 11/09/22 Procedure(s) Performed: BRIEF HISTORY: Patient is a 72-year-old pleasant white female scheduled for an elective colonoscopy as a part of screening for colon cancer. PROCEDURE PERFORMED: Colonoscopy with biopsy. PREOPERATIVE DIAGNOSIS: Screening for colon cancer. IV sedation per Anesthesia. PROCEDURE: After informed consent was obtained, the patient, was brought into the endoscopy unit. IV sedation was administered by Anesthesia under continuous monitoring. Digital rectal examination was normal. Initially the Olympus CF-160 flexible video colonoscope was then inserted in the rectum, gradually advanced into the cecum without any difficulty. Careful examination was performed as the scope was gradually being withdrawn. Ileocecal valve and the appendiceal orifice were visualized and appeared normal. Prep was excellent. Mucosa of the cecum, ascending colon, transverse colon, descending colon, sigmoid colon, and rectum appeared normal. In the rectosigmoid colon there was a 3-4 mm sessile polyp that was removed by cold biopsy. Scattered left sided diverticulosis seen. Retroflexion was performed in the rectum and no lesions were seen. The patient tolerated the procedure well. IMPRESSION: 3-4 mm rectosigmoid polyp status post cold biopsy Scattered sigmoid diverticulosis RECOMMENDATIONS: Findings of this examination were discussed with the patient as well as a family. She was advised to follow with the biopsy results. If the biopsy result adenoma she can have a repeat colonoscopy in 5 years..
[2022-11-09 10:01] VITALS: BP 135/77; PULSE 77
== END 2022-11-09 10:30 | disposition home or self-care (01) ==
LOC: ORWHC2ENDO 08:04
PROVIDERS: ATTEND Internal Medicine Gastroenterology
DX: Z12.11 Encounter for screening for malignant neoplasm of colon (principal); K62.1 Rectal polyp; K63.5 Polyp of colon; K57.30 Diverticulosis of large intestine without perforation or abscess without bleeding; I10 Essential (primary) hypertension; E78.5 Hyperlipidemia, unspecified; Z79.899 Other long term (current) drug therapy
CPT/HCPCS: 88305; 45380; J2704

== ENCOUNTER → 2022-12-26 | Outpatient (CLI) | payer MEDICARE, OTHER ==
--- NOTE | 2022-12-26 15:01 | XR ---
EXAMINATION TYPE: XR abdomen complete w decub DATE OF EXAM: 12/26/2022 COMPARISON: NONE HISTORY: Pelvic pressure. TECHNIQUE: Supine, upright, and left side down lateral decubitus views of the abdomen are obtained. FINDINGS: There is no evidence for pneumoperitoneum. The bowel gas pattern is unremarkable as there is air throughout nondilated small and large bowel. No sizeable air fluid levels. No mass effects are seen. No unusual calcifications. IMPRESSION: Unremarkable study
== END | disposition home or self-care (01) ==
LOC: RADXRMAIN 14:25
PROVIDERS: ATTEND Nurse Practitioner Family
DX: R10.30 Lower abdominal pain, unspecified (principal)
CPT/HCPCS: 74021

== ENCOUNTER → 2023-03-31 | Outpatient (CLI) | payer MEDICARE, OTHER ==
--- NOTE | 2023-03-31 10:48 | MM ---
Reason for Exam: Clinical finding. Last screening mammogram was performed 8 month(s) ago. Indicated Problems: Pain of the left side (Focal) for 1 Month(s) : AT NIPPLE. Patient History: Menarche at age 12. First Full-Term at age 21. Hysterectomy at age 32. Postmenopausal. Breast cancer, left, age 65. Breast cancer, right, age 66. Patient used Estrogen for 1 year. Benign Cyst Aspiration. 2016, Mastectomy on the Right side. 05/06/2016, Lumpectomy on the Left side. 05/06/2016, Malignant Core Biopsy on the right side. 04/14/2016, Malignant Core Biopsy on the right side. 05/28/2015, Malignant Core Biopsy on the left side. 05/28/2015, Malignant Core Biopsy on the left side. 04/24/2015, Malignant Core Biopsy on the left side. 03/25/2015, High risk Core Biopsy on the left side. 2015, Radiation Therapy on the left side. Prior Study Comparison: 07/20/2020 Left Diagnostic Mammogram, [facility]. 07/21/2021 Left Diagnostic Mammogram, [facility]. 07/22/2022 Bilateral MG 3D screening mammo w/cad, [facility]. Tissue Density: Left: There are scattered fibroglandular densities. Findings: Analyzed By CAD. Postsurgical changes to the left breast with biopsy clips present. Benign-appearing calcifications are present. No new suspicious masses, calcifications or distortions. Overall Assessment: Benign, BI-RAD 2 Management: Diagnostic Breast Ultrasound of the left breast. Results were given to the patient verbally at the time of exam. Patient should continue monthly self-breast exams. A clinical breast exam by your physician is recommended on an annual basis. This exam should not preclude additional follow-up of suspicious palpable abnormalities. Note on Xochitl scores and lifetime risk: 1. A Xochitl score greater than 3% is considered moderate risk. If this is the case, consider specialist referral to assess eligibility for a risk reducing agent. 2. If overall lifetime risk for the development of breast cancer is 20% or higher, the patient may qualify for future screening with alternating mammogram and breast MRI. Electronically signed and approved by: Juan Duval DO
== END | disposition home or self-care (01) ==
LOC: RADMAMWWP 10:08
PROVIDERS: ATTEND Internal Medicine Hematology & Oncology
DX: C50.411 Malignant neoplasm of upper-outer quadrant of right female breast (principal); R92.322 Mammographic fibroglandular density, left breast; Z85.3 Personal history of malignant neoplasm of breast; Z78.0 Asymptomatic menopausal state
CPT/HCPCS: 77065; G0279; 77061

== ENCOUNTER → 2023-05-23 | Outpatient (CLI) | payer MEDICARE, OTHER ==
--- NOTE | 2023-05-23 11:08 | USB ---
Reason for Exam: Hx of breast cancer, conservation therapy. Patient History: Menarche at age 12. First Full-Term at age 21. Hysterectomy at age 32. Postmenopausal. Breast cancer, left, age 65. Breast cancer, right, age 66. Patient used Estrogen for 1 year. Benign Cyst Aspiration. 2016, Mastectomy on the Right side. 05/06/2016, Lumpectomy on the Left side. 05/06/2016, Malignant Core Biopsy on the right side. 04/14/2016, Malignant Core Biopsy on the right side. 05/28/2015, Malignant Core Biopsy on the left side. 05/28/2015, Malignant Core Biopsy on the left side. 04/24/2015, Malignant Core Biopsy on the left side. 03/25/2015, High risk Core Biopsy on the left side. 2015, Radiation Therapy on the left side. Prior Study Comparison: 11/27/2008 Screening Mammogram, [facility]. 07/21/2021 Left Diagnostic Mammogram, [facility]. 07/22/2022 Bilateral MG 3D screening mammo w/cad, [facility]. 03/31/2023 Left MG 3D diag mammo w/cad , [facility]. Findings: The whole breast of the left breast, the axilla of the left breast and the retroareolar of the left breast were scanned. Electronically signed and approved by: Azam Hooks D.O. Radiologis
== END | disposition home or self-care (01) ==
LOC: RADUSWWP 07:24
PROVIDERS: ATTEND Internal Medicine
DX: C50.919 Malignant neoplasm of unspecified site of unspecified female breast (principal); Z78.0 Asymptomatic menopausal state; Z90.11 Acquired absence of right breast and nipple

== ENCOUNTER → 2023-07-24 | Outpatient (CLI) | payer MEDICARE, OTHER ==
--- NOTE | 2023-07-26 07:38 | MM ---
Reason for Exam: Hx of breast cancer, mastectomy. Last screening mammogram was performed 4 month(s) ago. Patient History: Menarche at age 12. First Full-Term at age 21. Hysterectomy at age 32. Postmenopausal. Breast cancer, left, age 65. Breast cancer, right, age 66. Patient used Estrogen for 1 year. Benign Cyst Aspiration. 2016, Mastectomy on the Right side. 05/06/2016, Lumpectomy on the Left side. 05/06/2016, Malignant Core Biopsy on the right side. 04/14/2016, Malignant Core Biopsy on the right side. 05/28/2015, Malignant Core Biopsy on the left side. 05/28/2015, Malignant Core Biopsy on the left side. 04/24/2015, Malignant Core Biopsy on the left side. 03/25/2015, High risk Core Biopsy on the left side. 2015, Radiation Therapy on the left side. Prior Study Comparison: 07/21/2021 Left Diagnostic Mammogram, [facility]. 07/22/2022 Bilateral MG 3D screening mammo w/cad, [facility]. 03/31/2023 Left MG 3D diag mammo w/cad LT, [facility]. Tissue Density: Left: There are scattered areas of fibroglandular density. Findings: Unchanged grouped calcifications medially along with some surgical clips. No significant change from prior exams. Overall Assessment: Benign, BI-RAD 2 Management: Screening Mammogram of the left breast in 1 year. . Results were given to the patient verbally at the time of exam. Patient should continue monthly self-breast exams. A clinical breast exam by your physician is recommended on an annual basis. This exam should not preclude additional follow-up of suspicious palpable abnormalities. Electronically signed and approved by: Angelica Calvillo M.D. Radiologist
== END | disposition home or self-care (01) ==
LOC: RADMAMWWP 08:42
PROVIDERS: ATTEND Internal Medicine Hematology & Oncology
DX: Z12.31 Encounter for screening mammogram for malignant neoplasm of breast (principal); Z78.0 Asymptomatic menopausal state
CPT/HCPCS: 77067

== ENCOUNTER → 2024-05-27 | Outpatient (CLI) | payer MEDICARE, OTHER ==
--- NOTE | 2024-05-28 06:36 | BD ---
EXAMINATION TYPE: Axial Bone Density DATE OF EXAM: 05/27/2024 CLINICAL HISTORY: 74 years old Female. ICD-10 CODE: M85.88 OTH DISRD OF BONE DENSITY STRUCTURE , A dditional History: Height: 64.25 Weight: 192 FRAX RISK QUESTIONS: Family History (Parent hip fracture): no History of Fracture in Adulthood: no Secondary Osteoporosis: no\ RISK FACTORS HISTORY OF: Surgery to Spine/Hip(right/left)/Wrist (right/left): no MEDICATIONS: Thyroid Medications: no Osteoporosis Medications: no EXAM MEASUREMENTS: Bone mineral densitometry was performed using the [employer]. Bone mineral density as measured about the Lumbar spine is: ----- L1-L4(G/cm2): 1.400 T Score Values are as follows: ----- L1: 1.8 ----- L2: 1.3 ----- L3: 2.2 ----- L4: 1.8 ----- L1-L4: 1.8 Z Score Values are as follows: ----- L1: 2.8 ----- L2: 2.3 ----- L3: 3.2 ----- L4: 2.8 ----- L1-L4: 2.8 Bone mineral density has: Increased 12.0% since study of: 07/20/2020 Bone mineral density about the R hip (g/cm2): 0.954 Bone mineral density about the L hip (g/cm2): 0.919 T Score values are as follows: -----R Neck: -1.0 -----L Neck: -0.5 -----R Total: -0.4 -----L Total: -0.7 Z Score values are as follows: -----R Neck: 0.4 -----L Neck: 0.9 -----R Total: 0.7 -----L Total: 0.4 Bone mineral density has: Decreased -0.4% since study of: 07/20/2020 FRAX%s: The graph provided illustrates a 9.0% chance for a major osteoporotic fx and a 1.2% chance fo r the hips probability for fx in 10 years time. IMPRESSION: Normal (Values between +1 and -1 indicate normal bone mass). Consider repeating this study in 5 year s or sooner if there is some new clinical indication. NOTE: T-SCORE=SD OF THE YOUNG ADULT MEAN. [facility], , 05/28/2024 6:33 AM
== END | disposition home or self-care (01) ==
LOC: RADBDWWP 16:10
PROVIDERS: ATTEND Internal Medicine
DX: M85.88 Other specified disorders of bone density and structure, other site (principal)
CPT/HCPCS: 77080

== ENCOUNTER → 2024-07-24 | Outpatient (CLI) | payer MEDICARE, OTHER ==
--- NOTE | 2024-07-24 11:56 | MM ---
Reason for Exam: Screening (asymptomatic). Last screening mammogram was performed 12 month(s) ago. Patient History: Menarche at age 12. First Full-Term at age 21. Hysterectomy at age 32. Postmenopausal. Breast cancer, left, age 65. Breast cancer, right, age 66. Patient used Estrogen for 1 year. Benign Cyst Aspiration. 2016, Mastectomy on the Right side. 05/06/2016, Lumpectomy on the Left side. 05/06/2016, Malignant Core Biopsy on the right side. 04/14/2016, Malignant Core Biopsy on the right side. 05/28/2015, Malignant Core Biopsy on the left side. 05/28/2015, Malignant Core Biopsy on the left side. 04/24/2015, Malignant Core Biopsy on the left side. 03/25/2015, High risk Core Biopsy on the left side. 2015, Radiation Therapy on the left side. Prior Study Comparison: 07/22/2022 Bilateral MG 3D screening mammo w/cad, [facility]. 03/31/2023 Left MG 3D diag mammo w/cad LT, [facility]. 07/24/2023 Left MG 3D scr manny unilateral w/cad., [facility]. Tissue Density: Left: The breasts are heterogeneously dense, which may obscure small masses. Findings: There is no suspicious group of microcalcifications or new suspicious mass in the left breast. Overall Assessment: Benign, BI-RAD 2 Management: Screening Mammogram of the left breast in 1 year. . Patient should continue monthly self-breast exams. A clinical breast exam by your physician is recommended on an annual basis. This exam should not preclude additional follow-up of suspicious palpable abnormalities. Note on Xochitl scores and lifetime risk: 1. A Xochitl score greater than 3% is considered moderate risk. If this is the case, consider specialist referral to assess eligibility for a risk reducing agent. 2. If overall lifetime risk for the development of breast cancer is 20% or higher, the patient may qualify for future screening with alternating mammogram and breast MRI. [facility], , 07/24/2024 11:52 AM. Electronically signed and approved by: Rafael Sutherland M.D. Radiologis
== END | disposition home or self-care (01) ==
LOC: RADMAMWWP 10:54
PROVIDERS: ATTEND Internal Medicine Hematology & Oncology
DX: Z12.31 Encounter for screening mammogram for malignant neoplasm of breast (principal); R92.332 Mammographic heterogeneous density, left breast; Z78.0 Asymptomatic menopausal state; Z90.11 Acquired absence of right breast and nipple
CPT/HCPCS: 77067